=== PATIENT | female | born 1975 | race Caucasian/White ===

== ENCOUNTER 2017-06-15 21:18 | Emergency (ER) | payer SELFPAY ==
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
--- NOTE | 2017-06-16 11:09 | NUR ---
Received referral stating patient requests financial assistance/bill assistance for ED viist. [facility] attempted to contact pt. No answer, voice mail message left.
--- NOTE | 2017-06-17 12:39 | NUR ---
[facility] called and spoke with pt. Pt states she had a follow-up ortho appt yesturday. Pt states she was able to get her discharge medications and that she received a fiancial assistance form for the hospital bill. Informed pt about [facility] and [facility]. SWS also mailed this information to her along with [facility] Guide. Pt denies any other needs or concerns at this time.
== END 2017-06-15 23:15 | disposition home or self-care (01) ==
LOC: ER 21:18
PROC: 0PSHXZZ Reposition Right Radius, External Approach (ICD-10-PCS; principal; 2017-06-15)
DX: S52.571A Other intraarticular fracture of lower end of right radius, initial encounter for closed fracture (principal); Z88.6 Allergy status to analgesic agent; Z79.899 Other long term (current) drug therapy; Y04.0XXA Assault by unarmed brawl or fight, initial encounter